=== PATIENT | female | born 1955 | race Caucasian/White ===

== ENCOUNTER 2016-09-16 07:43 | Day surgery (SDC) | payer MEDICARE, MEDICAID ==
--- NOTE | 2016-09-16 06:40 | History and Physical Report ---
DATE OF EVALUATION: 09/16/2016. CHIEF COMPLAINT AND HISTORY OF CHIEF COMPLAINT: This patient presents with a postlaminectomy radiculitis and a pain pattern which is quite extensive throughout the back, hip, and legs. A previous implanted spinal catheter infusion trial had to be aborted because of a catheter break and compromise to the system. She is here for an implanted spinal catheter infusion trial with fentanyl and bupivacaine. PAST MEDICAL HISTORY: Asthmatic bronchitis, hypothyroidism, chronic pain, depression. REVIEW OF SYSTEMS: The patient seems appropriate and in no acute distress. The remainder of the systems review shows glasses, dentures, headaches, thyroid disease, breathing difficulties, reflux, degenerative arthritis. SOCIAL HISTORY: Smoking. FAMILY HISTORY: Thyroid disease, asthma, cancer. PAST SURGICAL HISTORY: Extensive and includes spinal surgery. ALLERGIES: Morphine, codeine, hydromorphone, nonsteroidal anti-inflammatories. MEDICATIONS ON ADMISSION: To be provided. PHYSICAL EXAMINATION: General: Height is 5 feet, 2 inches. Weight is 160 pounds. Vital Signs: Unavailable. HEENT: Within normal limits. Lungs: Clear. Heart: Regular rate and rhythm. Abdomen: Nontender. Musculoskeletal: Examination of the musculoskeletal system shows diffuse tenderness throughout the lumbar spine. Range of motion produces pain to the low back adjacent to the laminectomy scar. The primary pain extends into her legs, right greater than left. Sensory garcias are intact. Neurologic: Cranial nerves are intact. IMPRESSIONS: 1. POSTLUMBAR LAMINECTOMY SYNDROME, ICD10 CODE M96.1. 2. LUMBAR RADICULITIS, ICD10 CODE M54.16 AND M54.17. PLANS: The patient is here for an implanted spinal infusion trial with fentanyl and bupivacaine. The procedure will be considered outpatient, although an overnight stay will be evaluated. Because of the dural puncture, an epidural blood patch will be performed. The potential risks, side effects, and complications including spinal cord injury and nerve root injury have all been reviewed and discussed. Kaushik Marin D.O. Date Time JOB NUMBER: [id number] cc: Cecy Arzate
[~2016-09-16 07:43] MED LIST: BUPIVACAINE IJ ONE; FAMOTIDINE 20MG TABLET PO ONE; FENTANYL CITRATE IJ ONE; MECLIZINE 25 MG TABLET PO ONE; METOCLOPRAMIDE 10 MG TABLET PO ONE; VANCOMYCIN HCL 1,000 MG in 0.9 % SODIUM CHLORIDE 250ML 250 ML IVPB ONE; [UNRECOGNIZED DRUG - OTHER] IJ ONE; [UNRECOGNIZED DRUG - OTHER] IJ ONE
[2016-09-16] MEDS ORDERED: NALOXONE 0.4 MG/1 ML VIAL IVP PRN (11:23)
[2016-09-16] MEDS ORDERED: METOCLOPRAMIDE 10 MG TABLET PO PRN (11:23)
[2016-09-16] MEDS ORDERED: DIPHENHYDRAMINE HCL 25 MG CAPSULE PO PRN ×2 (11:23)
[2016-09-16] MEDS ORDERED: TEMAZEPAM 15 MG CAPSULE PO PRN ×2 (11:23)
[2016-09-16] MEDS ORDERED: OXYCODONE/APAP 10MG-325MG TABLET PO PRN ×2 (11:23)
[2016-09-16] MEDS ORDERED: DIPHENHYDRAMINE HCL IV 50 MG/ML VIAL IVP PRN ×2 (11:23)
[2016-09-16] MEDS ORDERED: METOCLOPRAMIDE HCL 10 MG/2 ML VIAL IVP PRN (11:23)
[2016-09-16] MEDS ORDERED: HYDROCODONE/APAP 7.5/325MG TABLET PO PRN ×2 (11:23)
[2016-09-16] MEDS ORDERED: SENNOSIDES/DOCUSATE SODIUM UD CAPSULE PO PRN ×2 (11:23)
[2016-09-16] MEDS ORDERED: ACETAMINOPHEN 325 MG TAB PO PRN ×2 (11:23)
[2016-09-16] MEDS ORDERED: AL HYDROX/MAG HYDROX 30ML UD PO PRN (11:23)
[2016-09-16] MEDS ORDERED: PATIENT OWN MED: MONTELUKAST 10 MG PO SCH (12:00)
[2016-09-16] MEDS ORDERED: PATIENT OWN MED: VENLAFAXINE ER 75 MG PO SCH (12:00)
[2016-09-16] MEDS ORDERED: CRESTOR 20 MG PO SCH (12:00)
[2016-09-16] MEDS: PATIENT OWN MED: RANITIDINE 150 MG PO SCH ×2 (12:45→22:31)
[2016-09-16] MEDS ORDERED: LIDOCAINE 2% MDV (20MG/ML) 20ML VIAL IV ONE (14:00)
[2016-09-16] MEDS ORDERED: LIDOCAINE 1% W/EPI 1:200,000 MPF 30ML SQ ONE (14:00)
[2016-09-16] MEDS ORDERED: 0.9 % SODIUM CHLORIDE 100ML BAG IV ONE ×2 (14:00→15:13)
[2016-09-16] MEDS ORDERED: FENTANYL PF 100MCG/2ML VIAL IV ONE ×3 (14:00→15:13)
[2016-09-16] MEDS ORDERED: BUPIVACAINE 0.5% W/EPI MPF 30 ML VIAL IVP ONE (14:00)
[2016-09-16] MEDS ORDERED: MIDAZOLAM HCL 2MG/2ML VIAL IV ONE (14:00)
[2016-09-16] MEDS ORDERED: *PACU ONLY* KETAMINE HCL 10 MG/ML (20ML) VIAL IV ONE (14:00)
[2016-09-16] MEDS ORDERED: PROPOFOL 10 MG/ML VIAL IV ONE (14:00)
[2016-09-16] MEDS ORDERED: OXYCODONE HCL 5 MG TABLET PO PRN (17:02)
[2016-09-16] MEDS: OXYCODONE HCL 5 MG TABLET PO PRN ×2 (18:00→22:20)
[2016-09-16] MEDS: ALPRAZOLAM 0.25 MG TABLET PO PRN ×2 (18:03→22:22)
[2016-09-16] MEDS ORDERED: VANCOMYCIN HCL 1,000 MG in 0.9 % SODIUM CHLORIDE 250ML 250 ML IVPB ONE (20:30)
[2016-09-16] MEDS: RINGERS SOLUTION,LACTATED 1,000 ML IV SCH ×2 (20:48→22:39)
[2016-09-16] MEDS ORDERED: QUETIAPINE 50 MG PO SCH (22:00)
[2016-09-16] MEDS ORDERED: PATIENT OWN MED: DIPHENHYDRAMINE 25 MG PO SCH (22:00)
[2016-09-16] MEDS ORDERED: ROPINIROLE 1 MG PO SCH (22:00)
[2016-09-16] MEDS ORDERED: CLONAZEPAM 1 MG PO SCH (22:00)
[2016-09-17] MEDS: RINGERS SOLUTION,LACTATED 1,000 ML IV SCH (05:43)
[2016-09-17] MEDS ORDERED: SYNTHROID 150 MCG PO SCH (07:00)
[2016-09-17] MEDS: ALPRAZOLAM 0.25 MG TABLET PO PRN (07:57)
[2016-09-17] MEDS: OXYCODONE HCL 5 MG TABLET PO PRN (07:58)
--- NOTE | 2016-09-22 11:31 | RADIOLOGY REPORT ---
EXAM: AP LUMBAR SPINE HISTORY: PUMP TRIAL. TECHNIQUE: A single AP view of the lumbar spine was obtained. Comparison: AP spine dated 04/01/16. FINDINGS: Postop changes lower lumbar spine as before. Surgical clips right upper quadrant of the abdomen. Faint catheter/wire density extending from the left, overlying the mid lumbar spine and ascending with a tiny metallic dot at the T10 level presumably representing the cephalad extent of this catheter/ wire. IMPRESSION: CATHETER/WIRE EXTENDING UP TO THE T10 LEVEL. JOB NUMBER: [id number] [facility]
--- NOTE | 2016-09-23 16:26 | Operative Note ---
DATE OF SURGERY: 09/16/2016 PREOPERATIVE DIAGNOSES: 1. Post-lumbar laminectomy syndrome, ICD-10 code M96.1. 2. Lumbar radiculitis, ICD-10 code M54.16 and M54.17. SURGERY: 1. Fluoroscopic-guided access spinal space at L2-3, placement of thin wall spinal catheter T10-11. 2. Saline injection clearing catheter. 3. Spinal opioid bolus fentanyl 50 mcg through spinal catheter. 4. Incision and subdissection anchoring spinal cath through supraspinous fascia using anchor device with a nonabsorbable suture. 5. Incision, subdissection and creation of subcutaneous pouch at the left posterior gluteal margin. 6. Tunneling spinal catheter into posterior gluteal pouch, interface second catheter with connector. 7. Tunneling secondary catheter component superior exiting of skin 6 cm, interface external catheter to pump. Set to deliver fentanyl/bupivacaine at 75 mcg per day. 8. Closure of midline incision with Vicryl fascial running subcuticular, Vicryl for skin. Closure of posterior gluteal margin pouch with Nylon suture. 9. Epidural blood patch at L3-4, 20 mL autologous blood drawn in sterile technique left antecubital. 10. Dressings placed, 4 x 4s, Medipore securing catheter and all connections under sterile dressing. The patient was transported to Recovery Room flat, pillow under head and knees, stable, showing no side effects SURGEON: Kaushik Marin DO Anesthesia: Local sedation. Anesthesia Provider: Cinda Gould CRNA Indication: This patient presents with a history of intractable post-laminectomy radiculitis. She is here for a spinal perfusion trial with implanted catheter to determine if the implantation of a permanent system can be of value in pain control. Due to extensive allergies, she is having a fentanyl/bupivacaine solution for intraopioid administration. PROCEDURE: Intravenous line, vital sign monitoring, IV sedation, prep and drape in sterile technique. The patient was positioned prone. Sterile prep, sterile technique. The spinal interspace at L2-3 was marked, infiltrated and a 20-gauge spinal needle was inserted into the spinal space using AP and lateral imaging. No fasciculations, no difficulty. With CSF flow, a thin-wall spinal catheter was advanced and positioned at T10-11. No contrast was used because of allergy. Saline injected and aspirated. Clear and flow characteristics. The tip of the catheter identified at T10-11. A bolus of fentanyl 50 mcg was given through the catheter. The catheter was clamped, stopped CSF leak. Incision of subdissection and creation of subcutaneous pouch was then performed. The catheter was anchored to the supraspinous fascia with skin anchoring device and nonabsorbable suture. At the left posterior gluteal margin, skin was infiltrated and incision made of subcutaneous dissection was conducted to support former small pouch of the gluteal margin. A tunneling tool was then used to carry the spinal catheter into the gluteal pouch. The catheter was then interfaced with a second catheter component applied to the connector and then extended superior, exiting the skin 6 cm. The external catheter was then interfaced to an external pump set to deliver by continuous infusion of fentanyl at 50 mcg per day. The midline incision was then closed with Vicryl for the fascia and taina for the skin and the gluteal margin pouch was closed with Nylon suture. At L3-4, which was 1 level below the dural puncture and at L3-4 an 18-gauge Tuohy needle with loss of resistance in the epidural space. Twenty milliliters of autologous blood was drawn in sterile technique. Blood was passed onto the field maintaining sterility and epidural blood patch was performed at this level with this blood. Sterile dressing was placed to secure the catheter and all connections under sterile dressing. The pump was set to deliver as per above, 75 mcg per day. She was kept flat. Transported to the Recovery Room stable, showing no side effects from the procedure or sedation. When fully awake, she will stay flat for 4 hours, slowly elevated for 1, but will be kept overnight for observation. DISCHARGE INSTRUCTIONS IN THE MORNIN. Sites to remain clean and dry. No showering or bathing in any way that would disrupt dressings. If it happens, contact the clinic. 2. Standard medications resumed including an antibiotic, Levaquin 500 mg once a day for 14 days. 3. Spinal opioid side effects including respiratory depression, nausea, vomiting, constipation, urinary retention, lightheadedness, and rash have all been discussed and reviewed. Should they take place, she should contact the clinic immediately or go to the local Emergency Room. She will be taking antibiotic, clindamycin, as per instructions. If she has difficulty with the antibiotic, she should contact the clinic for substitution. All instructions were provided. Numbers to contact if problems given. She will be seen in the office in the next 3-5 days unless side effects develop, she will be seen sooner. All other instructions provided. Numbers to contact with problems given. She was then prepared for discharge in the morning. Kaushik Marin DO CC: Roberta Dawson MD MTDD
== END 2016-09-17 10:45 | disposition home or self-care (01) ==
LOC: SUR 07:43 → MEDSURG 10:54 → SUR 09-17 10:45
PROVIDERS: ATTEND Pain Medicine Interventional Pain Medicine
DX: M96.1 Postlaminectomy syndrome, not elsewhere classified (principal); M54.17 Radiculopathy, lumbosacral region; E03.9 Hypothyroidism, unspecified; E78.00 Pure hypercholesterolemia, unspecified
CPT/HCPCS: 72020; J3010; J7040; J7050; J7120

== ENCOUNTER 2016-09-30 07:18 | Day surgery (SDC) | payer MEDICARE, MEDICAID ==
[~2016-09-30 07:18] MED LIST changes: +ACETAMINOPHEN 1000MG/100 ML PREMIX IV ONE; +BUPIVACAINE HCL IV ONE; -BUPIVACAINE IJ ONE; -FENTANYL CITRATE IJ ONE; +FENTANYL CITRATE IV ONE; +FENTANYL PF 100MCG/2ML VIAL IVP ONE; -[UNRECOGNIZED DRUG - OTHER] IJ ONE; -[UNRECOGNIZED DRUG - OTHER] IJ ONE; +[UNRECOGNIZED DRUG - OTHER] IV ONE
--- NOTE | 2016-09-30 07:32 | History and Physical Report ---
DATE OF EVALUATION: 09/29/2016. CHIEF COMPLAINT AND HISTORY OF CHIEF COMPLAINT: This patient presents with an ongoing implanted spinal catheter infusion trial with fentanyl and bupivacaine. She has had 65 to 85 percent pain control. Due to the failure of all therapies and the success of the trial, by her request, she is here for implantation of a permanent system. PAST MEDICAL HISTORY: Asthmatic bronchitis, hypothyroidism, chronic pain, depression. SOCIAL HISTORY: Smoking. FAMILY HISTORY: Thyroid disease, asthma, cancer. PAST SURGICAL HISTORY: Multiple spinal surgeries. ALLERGIES: Morphine, codeine, hydromorphone, nonsteroidal anti-inflammatories. MEDICATIONS ON ADMISSION: To be provided. PHYSICAL EXAMINATION: General: Height is 5 feet, 2 inches. Weight is 160 pounds. Vital Signs: Unavailable. HEENT: Within normal limits. Lungs: Clear. Heart: Regular rate and rhythm. Abdomen: Nontender. Musculoskeletal: Examination of the musculoskeletal system shows the dressings consistent with the implanted catheter trial. All of the dressings are intact. Her underlying pain pattern is low back and bilateral lower extremities and is confirmed. Neurologic: Cranial nerves are intact. IMPRESSIONS: 1. POSTLUMBAR LAMINECTOMY SYNDROME, ICD10 CODE M96.1. 2. LUMBAR RADICULITIS, ICD10 CODE M54.16 AND M54.17. 3. IMPLANTED SPINAL INFUSION TRIAL WITH FENTANYL AND BUPIVACAINE. PLANS: The implanted catheter trial was successful, and she presents today for a full implant. We will remove all of the external components and implant the pump below the belt line posterior on a potentially outpatient basis. All of the potential risks, side effects, and complications have been carefully reviewed and discussed. The patient understands and wants to move forward. Kaushik Marin D.O. Date Time JOB NUMBER: [id number] cc: Cecy Arzate
[2016-09-30] MEDS ORDERED: LIDOCAINE 1% W/EPI 1:200,000 MPF 30ML SQ ONE (14:58)
[2016-09-30] MEDS ORDERED: OXYCODONE/APAP 10MG-325MG TABLET PO ONE (14:58)
[2016-09-30] MEDS ORDERED: VANCOMYCIN HCL 500 MG VIAL IV ONE (14:58)
[2016-09-30] MEDS ORDERED: HYDROMORPHONE HCL 2 MG/ML VIAL IV ONE (14:58)
[2016-09-30] MEDS ORDERED: BUPIVACAINE 0.5% W/EPI MPF 30 ML VIAL IVP ONE (14:58)
[2016-09-30] MEDS ORDERED: *PACU ONLY* KETAMINE HCL 10 MG/ML (20ML) VIAL IV ONE (16:24)
[2016-09-30] MEDS ORDERED: LIDOCAINE 2% MDV (20MG/ML) 20ML VIAL IV ONE (16:24)
[2016-09-30] MEDS ORDERED: PROPOFOL 10 MG/ML VIAL IV ONE (16:24)
[2016-09-30] MEDS ORDERED: FENTANYL PF 100MCG/2ML VIAL IV ONE (16:24)
[2016-09-30] MEDS ORDERED: MIDAZOLAM HCL 2MG/2ML VIAL IV ONE (16:24)
--- NOTE | 2016-10-05 12:01 | RADIOLOGY REPORT ---
EXAM: THORACOLUMBAR SPINE, SINGLE VIEW HISTORY: POSTOP. TECHNIQUE: A single AP view of the thoracic and lumbar spines was obtained. Comparison: None. FINDINGS: There is a pain pump projecting over the left lower quadrant. What appears to be a single catheter extending from it, however, the distal portion of the catheter is not seen. Post surgical changes of the lumbar spine. What may be the proximal radiopaque tip of the catheter projecting along the T10 level. IMPRESSION: QUESTIONABLE CATHETER TIP PROJECTING AT T10. CORRELATE WITH INTRAOPERATIVE FINDINGS. JOB NUMBER: [id number] [facility]
--- NOTE | 2016-10-06 14:34 | Operative Note - [place] ---
DATE OF SURGERY: 09/30/16 PREOPERATIVE DIAGNOSES: 1. POST LUMBAR LAMINECTOMY SYNDROME, ICD-10 CODE = M96.1. 2. LUMBAR RADICULITIS, ICD-10 CODE = M54.16 AND M54.17. 3. IMPLANTED SPINAL CATHETER INFUSION TRIAL FENTANYL AND BUPIVACAINE. OPERATION: 1. INCISION, SUBCUTANEOUS DISSECTION, AND REMOVAL OF EXTERNAL CATHETER. 2. INCISION, SUBCUTANEOUS DISSECTION, AND CREATION OF SUBCUTANEOUS POUCH AT LEFT POSTERIOR/SUPERIOR GLUTEAL MARGIN FOR PLACEMENT OF PUMP IDENTIFIED MEDTRONIC 40 ML PROGRAMMABLE. 3. INCISION, SUBCUTANEOUS DISSECTION, AND REVISION OF INDWELLING SPINAL CATHETER INTERFACED TO SECOND CATHETER COMPONENT FOR PUMP. 4. INTERFACE REVISED CATHETER TO PUMP, PRE-FILLED FENTANYL/BUPIVACAINE. PLACEMENT OF PUMP INTO POUCH SECURING TO POSTERIOR FASCIA USING NONABSORBABLE SUTURE, THREE POINT PUMP EYELETS. 5. A 24-GAUGE NEVILLE NEEDLE INSERTED ACCESS PORT WITH ASPIRATION CLEARING CATHETER OF OPIOID AND A CSF MIXTURE, SALINE INJECTED BECAUSE OF ALLERGIES TO CONTRAST CONFIRMING PATENCY. CATHETER TIP T11. 6. CLOSURE OF INCISION VICRYL FOR FASCIA, RUNNING SUBCUTICULAR VICRYL FOR SKIN. DERMABOND CLOSURE. 7. PROGRAMMING OF PUMP TO DELIVER BY CONTINUOUS INFUSION FENTANYL 200 MCG PER DAY. SURGEON: HELADIO CALVO D.O. ANESTHESIA: LOCAL SEDATION. ANESTHESIA PROVIDER: KARINA SINGH CRNA INDICATION: This patient presents with a history of post laminectomy radiculopathy/radiculitis, currently on an indwelling spinal catheter infusion trial with Fentanyl/Bupivacaine because of allergies. Due to the failure of all therapies and the success of the trial, she presents today for implantation of a permanent system. PROCEDURE: Intravenous line, vital sign monitoring, IV sedation, prepped, draped, sterile technique. Under imaging, the anchor and connector interfacing the external catheter/internal catheter were imaged and then marked. Skin infiltrated. The connector was identified, clamped, and the external catheter was cut and removed intact. The skin infiltrated, incision made, and subcutaneous dissection was conducted to this site to form a pouch of suitable size and depth for the pump identified as a Medtronic 40 mL Programmable. The indwelling catheter was then resected and interfaced with a second catheter component by way of a connector, which would interface the pump. Pump placed onto the field 40 mL Programmable filled with Fentanyl and Bupivacaine. The resected catheter was interfaced to the pump. The pump was then placed to the pouch, secured to the posterior fascia using nonabsorbable suture and the pump eyelets at three points. A 24-gauge Neville needle was inserted into the access port and 1 mL of catheter contents was aspirated clearing the catheter of opioid and the CSF mixture. Because of allergies to contrast, saline was injected through the access port confirming patency of the catheter. With the pump anchored, the incision was closed Vicryl for fascia and running subcuticular Vicryl for skin. Dermabond closure. The pump was then programmed to deliver by continuous infusion of Fentanyl at 200 mcg per day with Bupivacaine. She was transported to the Recovery Room stable showing no side- effects from the procedure or the sedation. In the Recovery Room when fully awake and alert, she was prepared for discharge. DISCHARGE INSTRUCTIONS: 1. The sites will remain clean and dry although the Dermabond will allow showering. 2. Standard medications resumed including continuing the Levaquin the antibiotic for another 10 days. 3. Spinal opioid side-effects including; respiratory depression, nausea, vomiting, constipation, urinary retention, light headedness or rash have all been discussed and reviewed. She will be seen in the office in 5-7 days to evaluate the incision. Until then, activities should stay low limiting bend, lift, push, pull. All other instructions provided, numbers to contact, problems given. At that point, she was discharged. HELADIO CALVO D.O. Date & Time cc: Dr. Dawson JOB NUMBER: [id number] [facility]
== END 2016-09-30 11:15 | disposition home or self-care (01) ==
LOC: SUR 07:18
PROVIDERS: ATTEND Pain Medicine Interventional Pain Medicine
DX: M96.1 Postlaminectomy syndrome, not elsewhere classified (principal); M54.16 Radiculopathy, lumbar region; M54.17 Radiculopathy, lumbosacral region; E03.9 Hypothyroidism, unspecified; E78.00 Pure hypercholesterolemia, unspecified
CPT/HCPCS: 62367; 72020; 62350; 62362; 00630; J3370; J3010 ×2; J1170; C1755; J7050